=== PATIENT | male | born 1960 | race Caucasian/White ===

== ENCOUNTER 2019-12-15 11:27 | Inpatient (IN) | payer MEDICARE ==
[2019-12-15] MEDS ORDERED: ONDANSETRON HCL INJ 2MG/ML 2ML 2 MG/ML VIAL IV STA (11:38)
[2019-12-15] MEDS ORDERED: LACTATED RINGER'S 1,000 ML INJ ONE ×2 (11:45→14:30)
--- OUTSIDE RECORDS SUMMARY | 2019-12-15 11:56 | XMS REPORT | Clinical Summary ---
Author Author [facility] Organization [facility] Address Unknown Phone Unavailable Care Team Providers Care Executive Producer Promos Name Role Phone Dixon--Jefferson Santos PCP Allergies No Known Allergies Medications End Date Status Medication Sig Dispensed Refills Start Date Active insulin detemir (LEVEMIR) Inject 10 0 100 unit/mL injection Units subcutaneousl y 2 (two) times daily . Active lisinopril Take 20 mg by 0 (PRINIVIL,ZESTRIL) 20 MG mouth 2 (two) tablet times daily. Active furosemide (LASIX) 20 MG Take 20 mg by 0 tablet mouth daily. Active allopurinol (ZYLOPRIM) Take 300 mg 0 100 MG tablet by mouth daily . Active lovastatin (MEVACOR) 40 Take 40 mg by 0 MG tablet mouth nightly. Active omeprazole (PRILOSEC) 40 Take 40 mg by 0 MG capsule mouth daily. Active cloNIDine HCl (CATAPRES) Take 0.1 mg 0 0.1 MG tablet by mouth 3 (three) times daily. Active Problems Not on file Social History Date Tobacco Use Types Packs/Day Years Used Never Smoker Smokeless Tobacco: Never Used Alcohol Use Drinks/Week oz/Week Comments No Sex Assigned at Date Recorded Not on file Industry Job Start Date Occupation Not on file Not on file Not on file Travel End Travel History Travel Start No recent travel history available. Last Filed Vital Signs Not on file Plan of Treatment Not on file Results Not on fileafter 12/14/2018 Insurance Payer Benefit Subscriber ID Type Phone Address Plan / Group MEDICARE MEDICARE A xxxxxxxxxxx Medicare B [id number]
--- OUTSIDE RECORDS SUMMARY | 2019-12-15 11:56 | XMS REPORT | Continuity of Care Document ---
Author Author [facility] t Organization [facility] Address [address] [place] [address] Phone Unavailable Care Team Providers Care Senior Hris Analyst Name Role Phone Dixon--Eddie Santos PCP Penny SWANSON SUNEAL Attphys Unavailable MANSMARY GRACE, BERGER LEOBARDO Attphys Unavailable HAUSERANUSHKA DEY Attphys Unavaila ble Penny SWANSON SUNEAL Admphys Unavailable MANSOUR, BERGER LEOBARDO Admphys Unavailable HAUSER SMARTANUSHKA DUPONT MIGUELINA Admphys Unavaila ble Problems This patient has no known problems. Allergies, Adverse Reactions, Alerts This patient has no known allergies or adverse reactions. Social History Social Habit Start Date Stop Date Quantity Comments Source Sex Assigned At [facility] Smoking Status Start Date Stop Date Source Never smoker [facility] Medications Ordered Medication Name Filled Medication Name Start Date Stop Da te Current Medication? Ordering Clinician Indication Dosage Frequency Signature (SIG) Comments Components Source insulin detemir (LEVEMIR) 100 unit/mL injection 2018-09-19 11:09 :53 Yes 10U Q.5D Inject 10 Units subcutaneously 2 (two) times daily . [facility] allopurinol (ZYLOPRIM) 100 MG tablet 2017-04-29 12:41:09 Ye s 300mg QD Take 300 mg by mouth daily . [facility] lovastatin (MEVACOR) 40 MG tablet 2017-04-29 12:41:09 Yes 40mg QD Take 40 mg by mouth nightly. [facility] omeprazole (PRILOSEC) 40 MG capsule 2017-04-29 12:41:09 Yes 40mg QD Take 40 mg by mouth daily. [facility] cloNIDine HCl (CATAPRES) 0.1 MG tablet 2017-04-29 12:41:09 Yes .1mg Q.[id number] Take 0.1 mg by mouth 3 (three) times daily. [facility] lisinopril (PRINIVIL,ZESTRIL) 20 MG tablet 2014-06-18 10:22:56 Yes 20mg Q.5D Take 20 mg by mouth 2 (two) times daily. [facility] furosemide (LASIX) 20 MG tablet 2014-06-18 10:22:56 Yes 20mg QD Take 20 mg by mouth daily. [facility] Procedures This patient has no known procedures. Results Test Description Test Time Test Comments Results Result Comments Source POCT-GLUCOSE METER 2018-09-21 06:56:00 Test Item POC-GLUCOSE METER (BEAKER) (test code = 1538) 206 mg/dL 70-110 H TESTED AT [address] [address] POCT-GLUCOSE [id number] 13:43:00* Test Item Value Reference Range Interpretation Comments POC-GLUCOSE METER (BEAKER) (test code = 1538) 111 mg/dL 70-110 H TESTED AT [address] [address] TISSUE [id number] 09:51:00Surgical Pathology Report Case: [id number] Authorizing Provider: Miguelina Rogers Collected: 06/10/2017 08Sae Starkey MD Ordering Location: 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 Signing Pathologist Direct Phone Line: [phone] signed by Surinder Velasquez MD on 06/13/2017 at 9:51 [id number], [id number] cancer screening, achalasiaGastric biopsy The specimen is received in a formalin-filled container labeled with the patient's information and labeled "gastric biopsy" and consists of two fragments of su tissue both measuring 0.1 cm, submitted in A1. CG/ew The following special studies were performed on this case and the interpretation is incorporated in the diagnostic report above:BLOCK A1- WARTHIN STARRYPOCT-GLUCOSE [id number] 09:58:00* Test Item Value Reference Range Interpretation Comments POC-GLUCOSE METER (BEAKER) (test code = 1538) 242 mg/dL 70-110 H TESTED AT [address] [address] POCT-GLUCOSE [id number] 08:31:00* Test Item Value Reference Range Interpretation Comments POC-GLUCOSE METER (BEAKER) (test code = 1538) 207 mg/dL 70-110 H TESTED AT [address] [address] TISSUE [id number] 15:07:00Surgical Pathology Report Case: [id number] Authorizing Provider: Miguelina Watt Collected: 10/15/2016 Carlos Starkey MD Ordering Location: [facility] Endoscopy Received: 10/15/2016 1603 Services Pathologist: Maciej Daly MD Specimen: Antrum STOMACH ANTRUM, BIOPSY- CHRONIC INACTIVE GASTRITIS, MILD- NO INTESTINAL METAPLASIA, NO DYSPLASIA AND NO MALIGNANCY IDENTIFIED- NO HELICOBACTER PYLORI ORGANISMS IDENTIFIED ON WARTHIN-STARRY STAIN [address]62[address], [id number], unspecified type, Down syndromeAntrum biopsyThe specimen is received in a formalin-filled container and labeled with the patient's information and labeled "antrum biopsy" and consists of two fragments of su-pink soft tissue measuring 0.1 and 0.3 cm, submitted entirely A1. CG/pl Sections reveal fragments of benign antral mucosa with mild chronic inflammation and focal vascular congestion. No active gastritis is seen. No Helicobacter pylori organisms are identified on Warthin - Starry stain. Intestinal metaplasia, dysplasia and malignancy are not seen.The following special studies were performed on this case and the interpretation is incorporated in the diagnostic report above:IMMUNOHISTOCHEMISTRY/SPECIAL STAIN SUMMARY:The results of immunohistochemical studies and/or special stains are as follows:A. Warthin-Starry stain - No Helicobacter pylori organisms identified POCT-GLUCOSE [id number] 15:40:00* Test Item Value Reference Range Interpretation Comments POC-GLUCOSE METER (BEAKER) (test code = 1538) 152 mg/dL 70-110 H TESTED AT [place] [address] POCT-GLUCOSE [id number] 12:41:00* Test Item Value Reference Range Interpretation Comments POC-GLUCOSE METER (BEAKER) (test code = 1538) 118 mg/dL 70-110 H TESTED AT [place] [address]
[2019-12-15 11:58] LABS: BASOPHILS # (AUTO) 0.1 (0.0-0.1); BASOPHILS % 1.8 % (0.0-1.0); EOSINOPHILS # (AUTO) 0.1 (0.0-0.4); EOSINOPHILS % 0.7 % (0.0-6.0); HEMOGLOBIN 14.3 g/dL (14.0-18.0); LYMPHOCYTES # (AUTO) 3.8 (1.0-3.2); LYMPHOCYTES % 52.3 % (18.0-39.1); MEAN CORPUSCULAR HEMOGLOBIN 26.9 pg (28-32); MEAN CORPUSCULAR HGB CONC 33.3 g/dL (31-35); MEAN CORPUSCULAR VOLUME 80.8 fL (81-99); MONOCYTES # (AUTO) 0.8 (0.2-0.8); MONOCYTES % 11.5 % (4.4-11.3); NEUTROPHILS # (AUTO) 2.4 (2.1-6.9); NEUTROPHILS % 33.3 % (38.7-80.0); PLATELET COUNT 272 x10e3/uL (140-360); RED BLOOD COUNT 5.32 x10e6/uL (4.3-5.7); RED CELL DISTRIBUTION WIDTH 14.6 % (11.7-14.4)
--- NOTE | 2019-12-15 12:04 | Emergency Department Note ---
History of Present Illnes History of Present Illness Chief Complaint: General Medicine Complaints History of Present Illness This is a 59 year old male w BEN Walker here for decrease po intake over last month, worse pner last 1-2 days. Not drinking anything all day, minimal. Historian: Family Member Arrival Mode: Car Onset (how long ago): day(s) (2) Location: diffuse Radiation: Reports non-radiation Severity: severe Onset quality: gradual Duration (how long): day(s) (2) Timing of current episode: constant Progression: worsening Relieving factors: none Exacerbating factors: none Past Medical/Family History Physician Review I have reviewed the patient's past medical and family history. Any updates have been documented here. Past Medical History Recent Fever: No Clinical Suspicion of Infectio: No New/Unexplained Change in Ment: No Past Medical History: Diabetes Other Medical History: DOWNS SYNDROME Other Surgery: ESOPHAGEAL STRICTURES SURGERY Review of Systems ROS Narrative Unable to obtain ROS: other (DeniseBEN) Physical Exam Related Data Allergies: Coded Allergies: No Known Allergies (Unverified , 12/15/19) Triage Vital Signs Vital Signs Date Time Temp Pulse Resp B/P (MAP) Pulse Ox O2 Delivery O2 Flow Rate FiO2 12/15/19 11:28 98.0 100 20 131/64 100 Room Air Physical Exam CONSTITUTIONAL Constitutional: Present well-developed, Present well-nourished HENT HENT: Present normocephalic, Present atraumatic, Present oropharynx clear/moist, Present nose normal HENT L/R: Present left ext ear normal, Present right ext ear normal EYES Eyes: Reports PERRL, Reports conjunctivae normal NECK Neck: Present ROM normal PULMONARY Pulmonary: Present effort normal, Present breath sounds normal CARDIOVASCULAR Cardiovascular: Present regular rhythm, Present heart sounds normal, Present capillary refill normal, Present tachycardia GASTROINTESTINAL Abdominal: Present soft, Present nontender, Present bowel sounds normal GENITOURINARY Genitourinary: Present exam deferred SKIN Skin: Present warm, Present dry MUSCULOSKELETAL Musculoskeletal: Present ROM normal NEUROLOGICAL Neurological: Present alert, Present oriented x 3, Present no gross motor or sensory deficits PSYCHOLOGICAL Psychological: Present mood/affect normal, Present judgement normal Results Laboratory Laboratory Laboratory Tests Test 12/15/19 11:48 Assessment & Plan Medical Decision Making MDM Pt is a 59 y/o with Denise now with decrease po intake, h/o stricture and GI procedure by Dr Verdugo ?dilation. We will try to po challenge, if unable will admit for scope. Reassessment Reassessment Patient will be admitted for acute renal failure, Dr. Brown accepted. Assessment & Plan Final Impression: (1) Acute kidney failure (2) Dehydration Depart Disposition: ADMITTED Last Vital Signs Date Time Temp Pulse Resp B/P (MAP) Pulse Ox O2 Delivery O2 Flow Rate FiO2 12/15/19 11:28 98.0 100 20 131/64 100 Room Air Medications in the ED Ondansetron HCl 4 mg NOW STAT IV ; Start 12/15/19 at 11:38; Stop 12/15/19 at 11:48; Status DC Lactated Ringer's 1,000 ml @ 0 mls/hr Q0M ONCE INJ ; Start 12/15/19 at 11:45; Stop 12/15/19 at 11:46; Status DC KRISTIE GIBSON MD Dec 15, 2019 12:04
[2019-12-15 12:17] LABS: ANION GAP 25.7 mmol/L (8-16); CALCIUM 9.3 mg/dL (8.4-10.2); CREATININE, SERUM 3.32 mg/dL (0.72-1.25); POTASSIUM 4.7 mmol/L (3.5-5.1)
[2019-12-15] MEDS ORDERED: DONNATAL/LIDOCAINE/MAALOX 30 ML SUSP PO ONE (13:00)
[2019-12-15] MEDS ORDERED: LEVETIRACETAM IV ONE (13:30)
[2019-12-15] MEDS ORDERED: SODIUM CHLORIDE 0.9% IV ONE (13:30)
--- NOTE | 2019-12-15 13:30 | NUR ---
RAPID RESPONSE CALLED FOR PATIENT IN CT AT THIS TIME; PER GRIEVANCE COORDINATOR, PATIENT EXHIBITING SEIZURE-LIKE ACTIVITY. UPON ARRIVAL PATIENT RESPONSIVE TO VOICE, BACK TO BASELINE. PATIENT SEEN TENSING UP AND JERKING RIGHT ARM, NO POST ICTAL PERIOD NOTED, PATIENT EASILY REDIRECTED BY TALKING TO HIM. PATIENT ABLE TO GET CT DONE WITH RN PRESENT TO REASSURE HIM. PER SISTER, PATIENT DOES THAT WHEN HE WANTS ATTENTION. PATIENT WITH NO HISTORY OF SEIZURES
--- NOTE | 2019-12-15 13:58 | Diagnostic Imaging Report ---
EXAMINATION: Head CT HISTORY: Seizure COMPARISON: None. TECHNIQUE: Helical axial images of the head were obtained. Reformatted coronal and sagittal images from the axial data. Dose modulation, iterative reconstruction, and/or weight based adjustment of the mA/kV was utilized to reduce the radiation dose to as low as reasonably achievable. Image quality: Motion/streaking artifact limits the evaluation of the skull base and posterior cranial fossa. FINDINGS: Parenchyma: 1. No abnormal densities. 2. No mass or hemorrhage. No CT evidence of acute territorial vascular insult. Extra-axial spaces:No abnormal density. No extra-axial fluid collections Brain volume: Normal for age. Ventricles: No hydrocephalus or displacement. Arteries: No density suggestive of thrombus. Dural sinuses: No abnormal density. Foramen magnum: No mass, Chiari malformation, or basilar invagination. Sella: No obvious mass. Paranasal/mastoid sinuses: Imaged portions unremarkable. Skull/Scalp: No lytic or blastic lesions. No fractures. IMPRESSION: No intracranial abnormalities. Signed by: Dr. Nery Carballo M.D. on 12/15/2019 1:54 PM
[2019-12-15] MEDS ORDERED: LORAZEPAM INJ 2 MG/ML VIAL IV ONE (14:00)
--- NOTE | 2019-12-15 14:01 | Diagnostic Imaging Report ---
EXAM: CT Abdomen and Pelvis WITHOUT contrast INDICATION: Abdominal pain. COMPARISON: None. TECHNIQUE: Abdomen and pelvis were scanned utilizing a multidetector helical scanner from the lung base to the pubic symphysis without administration of IV contrast. Absence of intravenous contrast decreases sensitivity for detection of focal lesions and vascular pathology. Coronal and sagittal reformations were obtained. Routine protocol was performed. IV CONTRAST: None ORAL CONTRAST: None COMPLICATIONS: None RADIATION DOSE: Total DLP: 1679.72 mGy*cm Estimated effective dose: (DLP x 0.015 x size factor) mSv CTDIvol has been reviewed. It is below the limits set by the Radiation Protocol Committee (RPC). Dose modulation, iterative reconstruction, and/or weight based adjustment of the mA/kV was utilized to reduce the radiation dose to as low as reasonably achievable. FINDINGS: LINES and TUBES: None. LOWER THORAX: Unremarkable HEPATOBILIARY: The liver is diffuse hypodense compared to the spleen, consistent with diffuse hepatic diffuse hepatic steatosis. No focal hepatic lesions. No biliary ductal dilation. GALLBLADDER: No radio-opaque stones or sludge. No wall thickening. SPLEEN: No splenomegaly. PANCREAS: There is fatty infiltration of the pancreas. ADRENALS: No adrenal nodules KIDNEYS/URETERS: No hydronephrosis. No cystic or solid mass lesions. No stones. GI TRACT: Small hiatal hernia. No abnormal distention, wall thickening, or evidence of bowel obstruction. Appendix is normal. PELVIC ORGANS/BLADDER: Unremarkable. LYMPH NODES: No lymphadenopathy. VESSELS: Punctate calcification in the inferior vena cava (series 6 image 14) likely represents a phlebolith. The abdominal aorta and its major abdomen and pelvic branches have normal caliber with mild atherosclerotic calcification. PERITONEUM / RETROPERITONEUM: No free air or fluid. BONES: There are degenerative changes in the spine. There is a healing fracture of the left inferior pubic rami (series 6 image 86) SOFT TISSUES: There are fat containing inguinal hernias. IMPRESSION: 1. No acute abdominopelvic abnormality identified. 2. Hepatic steatosis. Signed by: Francisco Calderon MD on 12/15/2019 1:57 PM
--- OUTSIDE RECORDS SUMMARY | 2019-12-15 14:59 | XMS REPORT | Clinical Summary ---
Author Author [facility] Organization [facility] Address Unknown Phone Unavailable Care Team Providers Care Sprinkler Irrigation Equipment Mechanic Name Role Phone Dixon--Jefferson Santos PCP Allergies [...] Group MEDICARE MEDICARE A xxxxxxxxxxx Medicare B [id number]
--- OUTSIDE RECORDS SUMMARY | 2019-12-15 14:59 | XMS REPORT | Continuity of Care Document ---
Author Author [facility] t Organization [facility] Address [address] [place] [address] Phone Unavailable Care Team Providers Care Transitional Studies Instructor Name Role Phone Dixon--Eddie Santos PCP Nora GIBSON Attphys Unavailable Penny SWANSON SUNEAL Attphys Unavailable CELINE BLACKBURN LEOBARDO Attphys Unavailable LALITO NIEVES Attphys Unavaila ble Penny SWANSON SUNEAL Admphys Unavailable MANSCELINE BRODY LEOBARDO Admphys Unavailable HAUSER LALITO SMART Admphys Unavaila ble Problems This patient has no known problems. Allergies, Adverse Reactions, Alerts This patient has no known allergies or adverse reactions. Social History Social Habit Start Date Stop Date Quantity Comments Source Sex Assigned At [facility] Smoking Status Start Date Stop Date Source Never smoker [facility] Medications Ordered Medication Name Filled Medication Name Start Date Stop Da te Current Medication? Ordering Clinician Indication Dosage Frequency Signature (SIG) Comments Components Source insulin detemir (LEVEMIR) 100 unit/mL injection 2018-09-19 11:09 :53 Yes 10U Q.5D Inject 10 Units subcutaneously 2 (two) times daily . [facility] allopurinol (ZYLOPRIM) 100 MG tablet 2017-04-29 12:41:09 Ye s 300mg QD Take 300 mg by mouth daily . [facility] lovastatin (MEVACOR) 40 MG tablet 2017-04-29 12:41:09 Yes 40mg QD Take 40 mg by mouth nightly. [facility] omeprazole (PRILOSEC) 40 MG capsule 2017-04-29 12:41:09 Yes 40mg QD Take 40 mg by mouth daily. [facility] cloNIDine HCl (CATAPRES) 0.1 MG tablet 2017-04-29 12:41:09 Yes .1mg Q.[id number] Take 0.1 mg by mouth 3 (three) times daily. [facility] lisinopril (PRINIVIL,ZESTRIL) 20 MG tablet 2014-06-18 10:22:56 Yes 20mg Q.5D Take 20 mg by mouth 2 (two) times daily. [facility] furosemide (LASIX) 20 MG tablet 2014-06-18 10:22:56 Yes 20mg QD Take 20 mg by mouth daily. [facility] Procedures This patient has no known procedures. Results Test Description Test Time Test Comments Results Result Comments Source CT BRAIN WO 2019-12-15 13:52:00 [place] [address] Patient Name: TRICIA TIRADO MR #: [id number] : 1960 Age/Sex: 59/M Req #: [id number] Adm Physician: Ordered by: KRISTIE GIBSON MD Report #: [id number] Location: ER Room/Bed: Procedure: [id number] CT/CT BRAIN WO Exam Date: 12/15/19 Exam Time: 1330 REPORT STATUS: Signed EXAMINATION: Head CT HISTORY: Seizure COMPARISON: None. TECHNIQUE: Helical axial images of the head were obtained. Reformatted coronal and sagittal images from the axial data. Dose modulation, iterative reconstruction, and/or weight based adjustment of the mA/kV was utilized to reduce the radiation dose to as low as reasonably achievable. Image quality: Motion/streaking artifact limits the evaluation of the skull base and posterior cranial fossa. FINDINGS: Parenchyma: 1. No abnormal densities. 2. No mass or hemorrhage. No CT evidence of acute territorial vascular insult. Extra-axial spaces:No abnormal den sity. No extra-axial fluid collections Brain volume: Normal for age. Ventricles: No hydrocephalus or displacement. Arteries: No density suggestive of thrombus. Dural sinuses: No abnormal density. Foramen magnum: No mass, Chiari malformation, or basilar invagination. Sella: No obvious mass. Paranasal/mastoid sinuses: Imaged portions unremarkable. Skull/Scalp: No lytic or blastic lesions. No fractures. IMPRESSION: No intracranial abnormalities. Signed by: Dr. Isabel Carballo M.D. on 12/15/2019 1:54 PM Dictated By: ISABEL CARBALLO MD [id number] Transcribed By: DANIELLA on 12/15/19 1354 COPY TO: KRISTIE GIBSON MD CT ABDOMEN/PELVIS WO 2019-12-15 13:49:00 [place] [address] Patient Name: TRICIA TIRADO MR #: [id number] : 1960 Age/Sex: 59/M Req #: [id number] Adm Physician: Ordered by: KRISTIE GIBSON MD Report #: [id number] Location: ER Room/Bed: Procedure: [id number] CT/CT ABDOMEN/PELVIS WO Exam Date: 12/15/19 Exam Time: 1325 REPORT STATUS: Signed EXAM: CT Abdomen and Pelvis WITHOUT contrast INDICATION: Abdominal pain. COMPARISON: None. TECHNIQUE: Abdomen and pelvis were scanned utilizing a multidetector helical scanner from the lung base to the pubic symphysis without administration of IV contrast. Absence of intravenous contrast decreases sensitivity for detection of focal lesions and vascular pathology. Coronal and sagittal reformations were obtained. Routine protocol was performed. IV CONTRAST: None ORAL CONTRAST: None COMPLICATIONS: None RADIATION DOSE: Total DLP: 1679.72 mGy*cm Estimated effective dose: (DLP x 0.015 x size factor) mSv CTDIvol has been reviewed. It is below the limits set by the Radiation Protocol Committee (RPC). Dose modulation, iterative reconstruction, and/or weight based adjustment of the mA/kV was utilized to reduce the radiation dose to as low as reasonably achievable. FINDINGS: LINES and TUBES: None. LOWER THORAX: Unremarkable HEPATOBILIARY: The liver is diffuse hypodense compared to the spleen, consistent with diffuse hepatic diffuse hepatic steatosis. No focal hepatic lesions. No biliary ductal dilation. GALLBLADDER: No radio-opaque stones or sludge. No wall thickening. SPLEEN: No splenomegaly. PANCREAS: There is fatty infiltration of the pancreas. ADRENALS: No adrenal nodules KIDNEYS/URETERS: No hydronephrosis. No cystic or solid mass lesions. No stones. GI TRACT: Small hiatal hernia. No abnormal distention, wall thickening, or evidence of bowel obstruction. Appendix is normal. PELVIC ORGANS/BLADDER: Unremarkable. LYMPH NODES: No lymphadenopathy. VESSELS: Punctate calcification in the inferior vena cava (series 6 image 14) likely represents a phlebolith. The abdominal aorta and its major abdomen and pelvic branches have normal caliber with mild atherosclerotic calcification. PERITONEUM / RETROPERITONEUM: No free air or fluid. BONES: There are degenerative changes in the spine. There is a healing fracture of the left inferior pubic rami (series 6 image 86) SOFT TISSUES: There are fat containing inguinal hernias. IMPRESSION: 1. No acute a bdominopelvic abnormality identified. 2. Hepatic steatosis. Signed by: Rosaura Lou MD on 12/15/2019 1:57 PM Dictated By: ROSAURA LOU MD [id number] Transcribed By: DANIELLA on 12/15/19 1722 COPY TO: KRISTIE GIBSON MD POCT-GLUCOSE METER 2018-09-21 06:56:00 Test Item POC-GLUCOSE METER (BEAKER) (test code = 1538) 206 mg/dL 70-[address] 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 Signing Pathologist Direct Phone Line: [phone] signed by Surinder Velasquez MD on 06/13/2017 at 9:51 [id number], [id number] cancer screening, achalasiaGastric biopsy The specimen is received in a formalin-filled container labeled with the patient's information and labeled "gastric biopsy" and consists of two fragments of su tissue both measuring 0.1 cm, submitted in A1. CG/ew The following special studies were performed on this case and the interpretation is incorporated in the diagnostic report above:BLOCK A1- WARTHICheng STARRYCOLINCT-GLUCOSE [id number] 09:58:00* Test Item Value Reference Range Interpretation Comments POC-GLUCOSE METER (BEAKER) (test code = 1538) 242 mg/dL 70-[address] [facility] [address] [facility] [address] POCT-GLUCOSE [id number] 08:31:00* Test Item Value Reference Range Interpretation Comments POC-GLUCOSE METER (BEAKER) (test code = 1538) 207 mg/dL 70-[address] [facility] [address] [facility] [address] TISSUE [id number] 15:07:00Surgical Pathology Report Case: [id number] Authorizing Provider: Miguelina Watt Collected: 10/15/2016 1443 MD Lalito Ordering Location: [facility] Endoscopy Received: 10/15/2016 1603 Services Pathologist: Maciej Daly MD Specimen: Antrum STOMACH ANTRUM, BIOPSY- CHRONIC INACTIVE GASTRITIS, MILD- NO INTESTINAL METAPLASIA, NO DYSPLASIA AND NO MALIGNANCY IDENTIFIED- NO HELICOBACTER PYLORI ORGANISMS IDENTIFIED ON WARTHIN-STARRY STAIN [address], [id number], unspecified type, Down syndromeAntrum biopsyThe specimen is [...] - No Helicobacter pylori organisms identified POCT-GLUCOSE [id number] 15:40:00* Test Item Value Reference Range Interpretation Comments POC-GLUCOSE METER (BEAKER) (test code = 1538) 152 mg/dL 70-110 H TESTED AT [place] [id number] [facility] [address] POCT-GLUCOSE [id number] 12:41:00* Test Item Value Reference Range Interpretation Comments POC-GLUCOSE METER (BEAKER) (test code = 1538) 118 mg/dL 70-[address] [facility] [address] [facility] [address]
[2019-12-15] MEDS ORDERED: AMOX TR-K CLV1 EAC2 (15:44)
[2019-12-15] MEDS ORDERED: LEVEMIR FL100 UNIT/1 (15:44)
[2019-12-15] MEDS ORDERED: NOVOFINE PLUS1 EACH (15:44)
[2019-12-15] MEDS ORDERED: METFORMIN HCL850 MG (15:44)
[2019-12-15 16:00] VITALS: BP 118/55
--- NOTE | 2019-12-15 16:45 | NUR ---
PT RECEIVED FROM ER. PT HAS DOWN SYNDROME AND SISTER AT BEDSIDE . CALL LIGHT WITH IN EASY REACH. BED IS LOW AND LOCKED. SIDE RAILS X2. BED ALARM IS ON. PT DENIES NEEDS AT THIS TIME.
--- NOTE | 2019-12-15 16:49 | NUR ---
SISTER AT BEDSIDE INFORMED SHE NEEDS TO GO HOME. PAGED DR CARTER AND INFORMED THE NEED OF SITTER. PAGED COPYIST AND INFORMED PT NEED SITTER FOR PT SAFETY.
--- NOTE | 2019-12-15 16:58 | NUR ---
PT RECEIVED WITH IV FLUIDS RUNNING 250 ML/HR ONCE . PT DENIES NEEDS AT THIS TIME.
--- NOTE | 2019-12-15 17:00 | NUR ---
PT AND SISTER AT BEDSIDE DOESN'T KNOW THE HOME MEDS PT TAKING. PT SISTER WILL BRING THE MED LIST WHEN SHE COME BACK TONIGHT. PAGED DR. CARTER AND REPORTED THE SAME
[2019-12-15 17:08] VITALS: BP 106/70
--- NOTE | 2019-12-15 17:30 | NUR ---
PT SISTER WENT HOME. PT IS RESTING ON BED. PT DENIES NEEDS AT THIS TIME.
--- NOTE | 2019-12-15 18:00 | NUR ---
WALKING ROUNDS MADE. PT IS RESTING ON BED WITH EYES CLOSED. NO DISTRESS NOTED.PT DENIES NEEDS AT THIS TIME.
--- NOTE | 2019-12-15 18:05 | NUR ---
PAGED [facility] TO GET PT MEDICATION LIST BUT PHARMACY IS CLOSED AT THIS TIME.
[2019-12-15 18:07] VITALS: BP 146/59
--- NOTE | 2019-12-15 18:55 | NUR ---
BEDSIDE SHIFT REPORT GIVEN TO THE DRINK WAITER RN. PT IS RESTING ON BED. PT DENIED FURTHER NEEDS.
[2019-12-15 20:00] VITALS: BP 115/67
--- NOTE | 2019-12-15 20:55 | NUR ---
ZOFRAN IV PRN AND ATIVAN IV PRN ORDER RECEIVED FROM DR. CARTER.
[2019-12-15] MEDS ORDERED: ONDANSETRON HCL INJ 2MG/ML 2ML 2 MG/ML VIAL IV PRN (21:00)
[2019-12-15] MEDS ORDERED: LORAZEPAM INJ 2 MG/ML VIAL IV PRN (21:00)
[2019-12-15 22:09] VITALS: BP 115/67
[2019-12-16] VITALS (7 sets, daily range): BP systolic 107–117; BP diastolic 53–63
[2019-12-16] MEDS ORDERED: LEVEMIR FL100 UNIT/1 SC (00:40)
[2019-12-16] MEDS ORDERED: LASIX20 MG PO (00:40)
[2019-12-16] MEDS ORDERED: AMLODIPINE BESY10 MG PO (00:40)
[2019-12-16] MEDS ORDERED: FAMOTIDINE20 MG PO (00:40)
[2019-12-16] MEDS ORDERED: GLIMEPIRIDE2 MG PO (00:40)
[2019-12-16] MEDS ORDERED: NATEGLINIDE60 MG PO (00:40)
[2019-12-16] MEDS ORDERED: METFORMIN HCL850 MG PO (00:40)
[2019-12-16] MEDS ORDERED: LISINOPRIL10 MG PO (00:42)
[2019-12-16 06:00] LABS: ANION GAP 18.6 mmol/L (8-16); CALCIUM 8.3 mg/dL (8.4-10.2); CREATININE, SERUM 2.76 mg/dL (0.72-1.25); POTASSIUM 4.6 mmol/L (3.5-5.1)
--- NOTE | 2019-12-16 06:44 | NUR ---
NOTIFIED DR. CARTER REGARDING CREATININE READING 2.76. NEW ORDER RECEIVED FOR NORMAL SALINE AT 125mls/hr.
[2019-12-16] MEDS: SODIUM CHLORIDE 0.9% 1000ML 1,000 ML IV SCH ×3 (08:36→23:00)
[2019-12-16] MEDS: AMLODIPINE BESYLATE 10 MG TAB PO SCH (08:36)
[2019-12-16] MEDS: GLIMEPIRIDE 2 MG TAB PO SCH (08:36)
[2019-12-16] MEDS: FAMOTIDINE 20 MG TAB PO SCH (20:53)
[2019-12-17] VITALS (7 sets, daily range): BP systolic 101–133; BP diastolic 47–75
[2019-12-17] MEDS: SODIUM CHLORIDE 0.9% 1000ML 1,000 ML IV SCH ×3 (04:09→23:00)
[2019-12-17 05:59] LABS: BASOPHILS # (AUTO) 0.1 (0.0-0.1); BASOPHILS % 1.5 % (0.0-1.0); EOSINOPHILS # (AUTO) 0.1 (0.0-0.4); EOSINOPHILS % 2.3 % (0.0-6.0); HEMATOCRIT 33.9 % (38.2-49.6); HEMOGLOBIN 10.9 g/dL (14.0-18.0); LYMPHOCYTES # (AUTO) 4.1 (1.0-3.2); LYMPHOCYTES % 66.6 % (18.0-39.1); MEAN CORPUSCULAR HEMOGLOBIN 26.9 pg (28-32); MEAN CORPUSCULAR HGB CONC 32.2 g/dL (31-35); MEAN CORPUSCULAR VOLUME 83.7 fL (81-99); MONOCYTES # (AUTO) 0.6 (0.2-0.8); MONOCYTES % 9.4 % (4.4-11.3); NEUTROPHILS # (AUTO) 1.2 (2.1-6.9); NEUTROPHILS % 19.9 % (38.7-80.0); PLATELET COUNT 180 x10e3/uL (140-360); RED BLOOD COUNT 4.05 x10e6/uL (4.3-5.7); RED CELL DISTRIBUTION WIDTH 14.6 % (11.7-14.4)
[2019-12-17 06:48] LABS: ALBUMIN 2.9 g/dL (3.5-5.0); ALBUMIN/GLOBULIN RATIO 1.1 (0.8-2.0); ANION GAP 10.4 mmol/L (8-16); CALCIUM 7.7 mg/dL (8.4-10.2); CREATININE, SERUM 1.94 mg/dL (0.72-1.25); POTASSIUM 4.4 mmol/L (3.5-5.1)
--- NOTE | 2019-12-17 07:00 | NUR ---
RECEIVED PATIENT RESTING IN BED NO S/S OF DISTRESS. BED LOW, WHEELS LOCKED, SIDE RAILS X2. CALL LIGHT IN REACH WILL CONTINUE TO MONITOR PATIENT.
--- NOTE | 2019-12-17 07:26 | NUR ---
NOTIFIED DR. CARTER OF CREATININE LEVEL 1.94 NO NEW ORDERS AT THIS TIME.
[2019-12-17] MEDS: GLIMEPIRIDE 2 MG TAB PO SCH (08:49)
[2019-12-17] MEDS: AMLODIPINE BESYLATE 10 MG TAB PO SCH (08:50)
[2019-12-17 08:57] LABS: EOSINOPHILS % (MANUAL) 3 % (0-7); LYMPHOCYTES % (MANUAL) 56 % (19-48); MONOCYTES % (MANUAL) 5 % (3.4-9.0); NEUTROPHILS % (MANUAL) 26 % (40-74)
[2019-12-17 08:58] LABS: PLATELET ESTIMATE ADEQUATE; PLATELET MORPHOLOGY COMMENT NORMAL; RBC MORPHOLOGY COMMENT NORMAL
--- NOTE | 2019-12-17 16:31 | NUR ---
Nutrition Screen Note RD Recommendation for Physician: - Continue current diet Plan of Care: RD following, monitoring for tolerance and adequacy Nutrition reason for involvement: RN Consult- diet education Primary Diagnose(s): acute kidney failure PMH: No H&P in [facility] Ht: approx 66 in Wt: 212.6 lbslb BMI: N/A no ht, pt can not recall IBW: approx [address] Assessment: (12/16) 59 YOM admitted for acute kidney failure, seen today per diet education consult. Pt provided with K diet education materials to be given to family/caregiver per pt's current cognitive status- not appropriate for education at this time. Pt reports good appetite and po intake currently and [employer]. Pt can not recall UBW, appears well nourished. Pt with no questions or concerns at time of visit. Chart reviewed. Labs and meds reviewed. Will continue to monitor. Current Diet: 1800 ADA Malnutrition Evaluation (12/17/19) The patient does not meet criteria for a specified degree of malnutrition at this time. Will re-evaluate at follow-up as appropriate. Diet Education Needs Assessment: Diet education indicated. Learner(s): pt Barriers: cognitive Cultural/Language Modifications: none Readiness: N/A Method: handouts Topics: Potassium diet restriction Understanding/Compliance: poor- diet education materials left at bedside for pt family/caregiver Diet tolerance: tolerating po Nutrition Care Level: low Signed: Violet Vasquez RD, LD, [facility]
--- NOTE | 2019-12-17 19:32 | NUR ---
Received pt in bed awake and alert. Pt with no s/sx of acute distress noted, no c/o at this time. Bed in low and locked position with alarm on. IVF infusing with no diff. Personal items and call light within reach. Bedside report completed will cont to mon.
[2019-12-17] MEDS: FAMOTIDINE 20 MG TAB PO SCH (21:00)
[2019-12-18] VITALS (9 sets, daily range): BP systolic 109–153; BP diastolic 56–68
[2019-12-18 06:01] LABS: BASOPHILS # (AUTO) 0.2 (0.0-0.1); BASOPHILS % 1.7 % (0.0-1.0); EOSINOPHILS # (AUTO) 0.3 (0.0-0.4); EOSINOPHILS % 2.4 % (0.0-6.0); HEMATOCRIT 41.2 % (38.2-49.6); HEMOGLOBIN 13.5 g/dL (14.0-18.0); LYMPHOCYTES # (AUTO) 6.9 (1.0-3.2); LYMPHOCYTES % 67.6 % (18.0-39.1); MEAN CORPUSCULAR HEMOGLOBIN 27.4 pg (28-32); MEAN CORPUSCULAR HGB CONC 32.8 g/dL (31-35); MEAN CORPUSCULAR VOLUME 83.7 fL (81-99); MONOCYTES # (AUTO) 0.7 (0.2-0.8); NEUTROPHILS # (AUTO) 2.1 (2.1-6.9); NEUTROPHILS % 20.9 % (38.7-80.0); PLATELET COUNT 227 x10e3/uL (140-360); RED BLOOD COUNT 4.92 x10e6/uL (4.3-5.7); RED CELL DISTRIBUTION WIDTH 14.5 % (11.7-14.4)
[2019-12-18 06:26] LABS: ALBUMIN 3.8 g/dL (3.5-5.0); ANION GAP 13.1 mmol/L (8-16); CALCIUM 8.4 mg/dL (8.4-10.2); CREATININE, SERUM 1.58 mg/dL (0.72-1.25); POTASSIUM 4.1 mmol/L (3.5-5.1)
[2019-12-18 06:27] LABS: ALBUMIN/GLOBULIN RATIO 1.1 (0.8-2.0)
--- NOTE | 2019-12-18 07:00 | NUR ---
RECEIVED PATIENT RESTING IN BED NO S/S OF DISTRESS. BED LOW, WHEELS LOCKED, SIDE RAILS X2. CALL LIGHT IN REACH WILL CONTINUE TO MONITOR PATIENT.
[2019-12-18] MEDS: GLIMEPIRIDE 2 MG TAB PO SCH (09:03)
[2019-12-18] MEDS: AMLODIPINE BESYLATE 10 MG TAB PO SCH (09:03)
[2019-12-18] MEDS: SODIUM CHLORIDE 0.9% 1000ML 1,000 ML IV SCH ×2 (11:06→15:00)
[2019-12-18] MEDS ORDERED: DEXTROSE 50% SYRINGE 50 ML IV PRN (11:15)
[2019-12-18] MEDS: INSULIN LISPRO 100 UNIT/1 ML 3ML VIAL SQ SCH ×3 (11:30→21:02)
[2019-12-18] MEDS: FAMOTIDINE 20 MG TAB PO SCH (21:02)
--- NOTE | 2019-12-18 21:09 | NUR ---
Received pt in bed awake, a/o x2-3 IVF infusing with occasional positional interruptions noted. Board placed to assist pt with keeping arm straight. No c/o at this time, no s/sx of acute distress notes. Bed in low and locked position, call light and personal items within reach. Will cont to mon.
[2019-12-19] VITALS: BP 109/50
[2019-12-19 04:00] VITALS: BP 117/55
[2019-12-19] MEDS ORDERED: MAGNESIUM SULFATE 2GM/50ML 50 ML IV ONE (04:45)
[2019-12-19 05:52] LABS: ALBUMIN 3.1 g/dL (3.5-5.0); ALBUMIN/GLOBULIN RATIO 1.1 (0.8-2.0); ANION GAP 12.2 mmol/L (8-16); CALCIUM 7.8 mg/dL (8.4-10.2); CREATININE, SERUM 1.36 mg/dL (0.72-1.25); POTASSIUM 4.2 mmol/L (3.5-5.1)
--- NOTE | 2019-12-19 07:00 | NUR ---
bedside shift report received pt in stable condition, no distress noted, updated on poc voiced understanding, denies pain at this time, call light in reach will continue to monitor
[2019-12-19] MEDS: INSULIN LISPRO 100 UNIT/1 ML 3ML VIAL SQ SCH (07:30)
[2019-12-19 07:33] VITALS: BP 125/65
[2019-12-19 08:42] VITALS: BP 125/65
[2019-12-19] MEDS: GLIMEPIRIDE 2 MG TAB PO SCH (08:45)
[2019-12-19] MEDS: AMLODIPINE BESYLATE 10 MG TAB PO SCH (08:45)
[2019-12-19] MEDS ORDERED: ONDANSETRON HCL 4 MG ORAL DISINTEGRATING TAB PO PRN (10:15)
--- NOTE | 2019-12-22 08:53 | Discharge Summary ---
DISCHARGE DIAGNOSES: 1. Dehydration. 2. Acute kidney injury. 3. Diabetes. 4. Hypertension. 5. Down syndrome. HISTORY OF PRESENT ILLNESS AND HOSPITAL COURSE: See hospital chart for full details. The patient is a gentleman with history of Down syndrome, who has previously had a decreased p.o. intake where he was noticed to come in with some severe acute kidney injury secondary to dehydration. He was brought in and placed on IV fluids. Monitor of his sugars of blood pressure, which he did very well. At each day, his creatinine improved. At the time of discharge, he is almost near normal, less confused, eating and drinking well on his own. He is able to be discharged home with his family to follow up with his PCP in 1 to 2 weeks. Please see hospital chart for full details. MD HELENA Alvarado/TINA /[id number]
== END 2019-12-19 10:49 | disposition home or self-care (01) | DRG 641 ==
LOC: ER 11:54 → ERHOLD 14:42 → MED/SURG 16:49
PROVIDERS: ADMIT Internal Medicine; ATTEND Internal Medicine
DX: E86.0 Dehydration (principal); N17.9 Acute kidney failure, unspecified; K21.9 Gastro-esophageal reflux disease without esophagitis; E11.9 Type 2 diabetes mellitus without complications; I10 Essential (primary) hypertension; Q90.9 Down syndrome, unspecified; Z82.49 Family history of ischemic heart disease and other diseases of the circulatory system; F41.9 Anxiety disorder, unspecified; D64.9 Anemia, unspecified; Z11.59 Encounter for screening for other viral diseases; Z79.4 Long term (current) use of insulin
CPT/HCPCS: 36415; 70450; 74176; 80048; 80053; 83518; 83735; 84484; 85025; 87070; 96361; 96372; 99284; J2060; J2405; J3475; J7030; J7121; U0002

== ENCOUNTER 2023-01-16 08:01 | Emergency (ER) | payer MEDICARE ==
[~2023-01-16] VITALS: Ht 149.9 cm; Wt 96.2 kg
[~2023-01-16 08:01] MED LIST: AMLODIPINE BESY10 MG PO; AMOX TR-K CLV1 EAC2; FAMOTIDINE20 MG PO; GLIMEPIRIDE2 MG PO; LASIX20 MG PO; LEVEMIR FL100 UNIT/1; LEVEMIR FL100 UNIT/1 SC; LISINOPRIL10 MG PO; METFORMIN HCL850 MG; METFORMIN HCL850 MG PO; NATEGLINIDE60 MG PO; NOVOFINE PLUS1 EACH
[2023-01-16] MEDS ORDERED: DEXTROSE 5%/0.45% SOD CHL 1,000 ML IV ONE (08:30)
[2023-01-16] MEDS ORDERED: LACTATED RINGER'S 1,000 ML INJ SCH (08:30)
[2023-01-16 09:31] LABS: BASOPHILS # (AUTO) 0.1 (0.0-0.1); BASOPHILS % 0.8 % (0.0-1.0); EOSINOPHILS # (AUTO) 0.1 (0.0-0.4); EOSINOPHILS % 1.1 % (0.0-6.0); HEMATOCRIT 30.5 % (38.2-49.6); HEMOGLOBIN 10.7 g/dL (14.0-18.0); LYMPHOCYTES # (AUTO) 1.4 (1.0-3.2); LYMPHOCYTES % 22.4 % (18.0-39.1); MEAN CORPUSCULAR HEMOGLOBIN 27.8 pg (28-32); MEAN CORPUSCULAR HGB CONC 35.1 g/dL (31-35); MEAN CORPUSCULAR VOLUME 79.2 fL (81-99); MONOCYTES # (AUTO) 0.6 (0.2-0.8); MONOCYTES % 9.1 % (4.4-11.3); NEUTROPHILS # (AUTO) 4.1 (2.1-6.9); NEUTROPHILS % 66.4 % (38.7-80.0); PLATELET COUNT 227 x10e3/uL (140-360); RED BLOOD COUNT 3.85 x10e6/uL (4.3-5.7); RED CELL DISTRIBUTION WIDTH 15.7 % (11.7-14.4); WHITE BLOOD COUNT 6.16 x10e3/uL (4.8-10.8)
[2023-01-16 09:45] LABS: ANION GAP 14.3 mmol/L (8-16); BLOOD UREA NITROGEN 32 mg/dL (7-26); BUN/CREATININE RATIO 20 (6-25); CALCIUM 8.8 mg/dL (8.4-10.2); CARBON DIOXIDE 25 mmol/L (22-29); CHLORIDE 107 mmol/L (98-107); CREATININE, SERUM 1.62 mg/dL (0.72-1.25); GLUCOSE 142 mg/dL (74-118); POTASSIUM 4.3 mmol/L (3.5-5.1); SODIUM 142 mmol/L (136-145)
[2023-01-16 10:09] LABS: CLARITY,URINE SL CLOUDY (CLEAR); COLOR,URINE YELLOW (YELLOW); LEUKOCYTE ESTERASE ,URINE TRACE (NEGATIVE)
[2023-01-16 10:10] LABS: KETONES,URINE NEGATIVE (NEGATIVE); NITRITE,URINE NEGATIVE (NEGATIVE); PROTEIN,URINE DIPSTICK NEGATIVE (NEGATIVE); URINE UROBILINOGEN 0.2 mg/dL (0.2 - 1)
[2023-01-16 10:22] LABS: BACTERIA,URINE MANY /HPF; RBC,URINE 0-5 /HPF (0-5)
[2023-01-16 10:23] LABS: EPITHELIAL CELLS,URINE MODERATE /LPF
[2023-01-16] MEDS ORDERED: CEFDINIR300 MG PO (10:57)
[2023-01-16 10:59] VITALS: O2SAT 100
[2023-01-17] MEDS ORDERED: RISPERIDONE1 MG PO (15:41)
[2023-01-17] MEDS ORDERED: DICLOFENAC SODI75 MG PO (15:41)
[2023-01-17] MEDS ORDERED: ATORVASTATIN CA40 MG PO (15:43)
[2023-01-24] MEDS ORDERED: DOXYCYCLINE HY100 MG PO ×2 (08:03→09:21)
[2023-01-24] MEDS ORDERED: ELIQUIS5 MG PO ×2 (08:03→09:21)
== END 2023-01-16 11:49 | disposition home or self-care (01) ==
LOC: ER 08:08
DX: E86.0 Dehydration (principal); N17.9 Acute kidney failure, unspecified; N39.0 Urinary tract infection, site not specified; E11.65 Type 2 diabetes mellitus with hyperglycemia; Q90.9 Down syndrome, unspecified; Z20.822 Contact with and (suspected) exposure to COVID-19; R94.31 Abnormal electrocardiogram [ECG] [EKG]
CPT/HCPCS: 0223U; 36415; 71045; 80048; 81001; 85025; 87086; 87186; 87400; 93005; 99284; J0696; J7121

== ENCOUNTER 2023-01-17 13:56 | Inpatient (IN) | payer MEDICARE ==
[~2023-01-17] VITALS: Ht 121.9 cm; Wt 90.3 kg
[2023-01-17] VITALS (19 sets, daily range): BP systolic 103–125; BP diastolic 50–102; PULSE 10–59; RESP 5–55; TEMP 97.8–98.1; O2SAT 100
[~2023-01-17 13:56] MED LIST changes: +CEFDINIR300 MG PO
[2023-01-17] MEDS ORDERED: SODIUM CHLORIDE 0.9% 1000ML 1,000 ML IV STA ×3 (14:10)
[2023-01-17 14:26] LABS: BASOPHILS # (AUTO) 0.1 (0.0-0.1); BASOPHILS % 1.4 % (0.0-1.0); EOSINOPHILS # (AUTO) 0.1 (0.0-0.4); EOSINOPHILS % 1.2 % (0.0-6.0); HEMOGLOBIN 10.8 g/dL (14.0-18.0); LYMPHOCYTES # (AUTO) 1.7 (1.0-3.2); LYMPHOCYTES % 33.7 % (18.0-39.1); MEAN CORPUSCULAR HEMOGLOBIN 27.7 pg (28-32); MEAN CORPUSCULAR HGB CONC 34.8 g/dL (31-35); MEAN CORPUSCULAR VOLUME 79.5 fL (81-99); MONOCYTES # (AUTO) 0.4 (0.2-0.8); MONOCYTES % 7.5 % (4.4-11.3); NEUTROPHILS # (AUTO) 2.8 (2.1-6.9); NEUTROPHILS % 55.8 % (38.7-80.0); PLATELET COUNT 232 x10e3/uL (140-360); RED CELL DISTRIBUTION WIDTH 15.8 % (11.7-14.4); WHITE BLOOD COUNT 4.95 x10e3/uL (4.8-10.8)
[2023-01-17 14:32] LABS: INR 1.15; PARTIAL THROMBOPLASTIN TIME 25.7 seconds (23.8-35.5); PROTHROMBIN TIME 15.4 seconds (11.9-14.5)
[2023-01-17 14:52] LABS: ACETAMINOPHEN < 3.0 ug/mL (10-30); ETHANOL < 10.0 mg/dL (0.0-10.0); SALICYLATE < 5.0 mg/dL (0-30)
[2023-01-17] MEDS ORDERED: HYDROCORTISONE SOD SUCCINATE 100 MG VIAL IV ONE (15:00)
[2023-01-17 15:09] LABS: TROPONIN I 0.017 ng/mL (0-0.300)
[2023-01-17 15:14] LABS: ALBUMIN 3.1 g/dL (3.5-5.0); ALBUMIN/GLOBULIN RATIO 1.1 (0.8-2.0); ANION GAP 14.3 mmol/L (8-16); BILIRUBIN,TOTAL 0.9 mg/dL (0.2-1.2); CALCIUM 8.5 mg/dL (8.4-10.2); CREATININE, SERUM 1.76 mg/dL (0.72-1.25); MAGNESIUM 1.7 MG/DL (1.3-2.1); POTASSIUM 4.3 mmol/L (3.5-5.1); TOTAL PROTEIN 5.8 g/dL (6.5-8.1)
[2023-01-17] MEDS ORDERED: RISPERIDONE1 MG PO (15:41)
[2023-01-17] MEDS ORDERED: DICLOFENAC SODI75 MG PO (15:41)
[2023-01-17] MEDS ORDERED: ATORVASTATIN CA40 MG PO (15:43)
[2023-01-17 15:47] LABS: AMPHETAMINES SCREEN,URINE NEGATIVE (NEGATIVE); BENZODIAZEPINES SCREEN,URINE NEGATIVE (NEGATIVE); CANNABINOIDS SCREEN,URINE NEGATIVE (NEGATIVE); METHADONE SCREEN, URINE NEGATIVE (NEGATIVE); OPIATES SCREEN,URINE NEGATIVE (NEGATIVE); PHENCYCLIDINE SCREEN,URINE NEGATIVE (NEGATIVE)
[2023-01-17 15:48] LABS: BILIRUBIN,URINE NEGATIVE (NEGATIVE); CLARITY,URINE SL CLOUDY (CLEAR); COLOR,URINE STRAW (YELLOW); GLUCOSE, URINE NEGATIVE (NEGATIVE); KETONES,URINE NEGATIVE (NEGATIVE); LEUKOCYTE ESTERASE ,URINE SMALL (NEGATIVE); NITRITE,URINE NEGATIVE (NEGATIVE); PH,URINE 5 (5 - 7); PROTEIN,URINE DIPSTICK NEGATIVE (NEGATIVE); URINE UROBILINOGEN 0.2 mg/dL (0.2 - 1)
[2023-01-17 15:59] LABS: BACTERIA,URINE FEW /HPF; EPITHELIAL CELLS,URINE MODERATE /LPF; TRANSITIONAL EPI CELLS,URINE FEW; WBC,URINE (MAN) 0-5 /HPF (0-5)
[2023-01-17] MEDS ORDERED: ONDANSETRON HCL INJ 2MG/ML 2ML 2 MG/ML VIAL IV PRN (16:15)
[2023-01-17] MEDS: SODIUM CHLORIDE 0.9% 1000ML 1,000 ML IV SCH (16:19)
[2023-01-17] MEDS: INSULIN REGULAR, HUMAN 100 UNIT/1 ML SQ SCH ×2 (16:30→20:22)
[2023-01-18] VITALS (39 sets, daily range): BP systolic 85–150; BP diastolic 30–117; PULSE 44–63; RESP 4–20; TEMP 96.7–98.2; O2SAT 98–100
[2023-01-18] MEDS: SODIUM CHLORIDE 0.9% 1000ML 1,000 ML IV SCH ×2 (00:24→09:17)
[2023-01-18 03:40] LABS: TROPONIN I 0.009 ng/mL (0-0.300)
[2023-01-18 06:33] LABS: BASOPHILS % 0.3 % (0.0-1.0); EOSINOPHILS % 0.1 % (0.0-6.0); HEMATOCRIT 28.6 % (38.2-49.6); HEMOGLOBIN 9.9 g/dL (14.0-18.0); LYMPHOCYTES # (AUTO) 2.1 (1.0-3.2); LYMPHOCYTES % 27.1 % (18.0-39.1); MEAN CORPUSCULAR HEMOGLOBIN 27.5 pg (28-32); MEAN CORPUSCULAR HGB CONC 34.6 g/dL (31-35); MEAN CORPUSCULAR VOLUME 79.4 fL (81-99); MONOCYTES # (AUTO) 0.4 (0.2-0.8); MONOCYTES % 5.4 % (4.4-11.3); NEUTROPHILS # (AUTO) 5.1 (2.1-6.9); NEUTROPHILS % 66.8 % (38.7-80.0); PLATELET COUNT 210 x10e3/uL (140-360); RED CELL DISTRIBUTION WIDTH 15.6 % (11.7-14.4); WHITE BLOOD COUNT 7.59 x10e3/uL (4.8-10.8)
[2023-01-18 06:55] LABS: ALBUMIN 2.6 g/dL (3.5-5.0); ALBUMIN/GLOBULIN RATIO 1.1 (0.8-2.0); ANION GAP 9.9 mmol/L (8-16); BILIRUBIN,TOTAL 0.8 mg/dL (0.2-1.2); CREATININE, SERUM 1.12 mg/dL (0.72-1.25); POTASSIUM 3.9 mmol/L (3.5-5.1)
[2023-01-18] MEDS: INSULIN REGULAR, HUMAN 100 UNIT/1 ML SQ SCH ×4 (07:30→21:00)
[2023-01-18 07:55] LABS: FERRITIN 349.08 ng/mL (21.81-274.66)
[2023-01-18] MEDS: LACTATED RINGER'S 1,000 ML INJ SCH ×2 (13:52→22:45)
[2023-01-18 15:27] LABS: CREATINE KINASE 2512 IU/L (30-200)
[2023-01-18 15:36] LABS: TROPONIN I < 0.001 ng/mL (0-0.300)
[2023-01-18] MEDS: DEXTROSE 50% SYRINGE 50 ML IV PRN (19:58)
[2023-01-19] VITALS (29 sets, daily range): BP systolic 77–130; BP diastolic 47–90; PULSE 41–67; RESP 0–16; TEMP 97.3–98.5; O2SAT 99–100
[2023-01-19] MEDS ORDERED: NOREPINEPHRINE 8 MG/D5W 250 ML 250 ML IV SCH
[2023-01-19 06:32] LABS: BASOPHILS # (AUTO) 0.1 (0.0-0.1); BASOPHILS % 1.2 % (0.0-1.0); EOSINOPHILS # (AUTO) 0.2 (0.0-0.4); EOSINOPHILS % 3.2 % (0.0-6.0); HEMATOCRIT 28.5 % (38.2-49.6); HEMOGLOBIN 9.8 g/dL (14.0-18.0); LYMPHOCYTES # (AUTO) 2.7 (1.0-3.2); LYMPHOCYTES % 45.7 % (18.0-39.1); MEAN CORPUSCULAR HEMOGLOBIN 27.9 pg (28-32); MEAN CORPUSCULAR HGB CONC 34.4 g/dL (31-35); MEAN CORPUSCULAR VOLUME 81.2 fL (81-99); MONOCYTES # (AUTO) 0.5 (0.2-0.8); MONOCYTES % 8.3 % (4.4-11.3); NEUTROPHILS # (AUTO) 2.4 (2.1-6.9); NEUTROPHILS % 41.3 % (38.7-80.0); PLATELET COUNT 203 x10e3/uL (140-360); RED BLOOD COUNT 3.51 x10e6/uL (4.3-5.7); RED CELL DISTRIBUTION WIDTH 15.9 % (11.7-14.4); WHITE BLOOD COUNT 5.91 x10e3/uL (4.8-10.8)
[2023-01-19 07:03] LABS: CALCIUM 8.1 mg/dL (8.4-10.2); CREATININE, SERUM 1.03 mg/dL (0.72-1.25); MAGNESIUM 1.7 MG/DL (1.3-2.1)
[2023-01-19] MEDS: INSULIN REGULAR, HUMAN 100 UNIT/1 ML SQ SCH ×4 (07:22→20:58)
[2023-01-19 07:23] LABS: TROPONIN I 0.012 ng/mL (0-0.300)
[2023-01-19] MEDS: DEXTROSE 50% SYRINGE 50 ML IV PRN (09:32)
[2023-01-19] MEDS: LACTATED RINGER'S 1,000 ML INJ SCH ×2 (09:34→19:17)
[2023-01-20] VITALS (23 sets, daily range): BP systolic 81–120; BP diastolic 46–82; PULSE 43–57; RESP 0–34; TEMP 97.3–97.9; O2SAT 98–100
[2023-01-20] MEDS: LACTATED RINGER'S 1,000 ML INJ SCH ×2 (06:00→11:54)
[2023-01-20 06:46] LABS: BASOPHILS # (AUTO) 0.1 (0.0-0.1); BASOPHILS % 1.2 % (0.0-1.0); EOSINOPHILS # (AUTO) 0.2 (0.0-0.4); HEMATOCRIT 27.5 % (38.2-49.6); HEMOGLOBIN 9.5 g/dL (14.0-18.0); LYMPHOCYTES # (AUTO) 2.7 (1.0-3.2); LYMPHOCYTES % 36.9 % (18.0-39.1); MEAN CORPUSCULAR HEMOGLOBIN 27.8 pg (28-32); MEAN CORPUSCULAR HGB CONC 34.5 g/dL (31-35); MEAN CORPUSCULAR VOLUME 80.4 fL (81-99); MONOCYTES # (AUTO) 0.6 (0.2-0.8); MONOCYTES % 8.1 % (4.4-11.3); NEUTROPHILS # (AUTO) 3.8 (2.1-6.9); NEUTROPHILS % 51.5 % (38.7-80.0); PLATELET COUNT 199 x10e3/uL (140-360); RED BLOOD COUNT 3.42 x10e6/uL (4.3-5.7); RED CELL DISTRIBUTION WIDTH 15.9 % (11.7-14.4); WHITE BLOOD COUNT 7.32 x10e3/uL (4.8-10.8)
[2023-01-20 07:06] LABS: CALCIUM 7.7 mg/dL (8.4-10.2); MAGNESIUM 1.5 MG/DL (1.3-2.1); PHOSPHORUS 2.9 MG/DL (2.3-4.7)
[2023-01-20] MEDS: INSULIN REGULAR, HUMAN 100 UNIT/1 ML SQ SCH ×4 (07:17→21:00)
[2023-01-20] MEDS: ATORVASTATIN 40 MG TAB PO SCH (21:12)
[2023-01-20] MEDS: FAMOTIDINE 20 MG TAB PO SCH (21:13)
[2023-01-21] VITALS (30 sets, daily range): BP systolic 82–130; BP diastolic 40–85; PULSE 45–63; RESP 5–17; TEMP 96.7–97.8; O2SAT 100
[2023-01-21] MEDS: LACTATED RINGER'S 1,000 ML INJ SCH ×3 (02:00→22:00)
[2023-01-21 06:50] LABS: BASOPHILS # (AUTO) 0.1 (0.0-0.1); BASOPHILS % 1.6 % (0.0-1.0); EOSINOPHILS # (AUTO) 0.1 (0.0-0.4); EOSINOPHILS % 2.3 % (0.0-6.0); HEMOGLOBIN 9.7 g/dL (14.0-18.0); LYMPHOCYTES # (AUTO) 2.9 (1.0-3.2); LYMPHOCYTES % 46.4 % (18.0-39.1); MEAN CORPUSCULAR HEMOGLOBIN 27.7 pg (28-32); MEAN CORPUSCULAR HGB CONC 34.6 g/dL (31-35); MONOCYTES # (AUTO) 0.5 (0.2-0.8); MONOCYTES % 8.6 % (4.4-11.3); NEUTROPHILS # (AUTO) 2.5 (2.1-6.9); NEUTROPHILS % 40.6 % (38.7-80.0); PLATELET COUNT 198 x10e3/uL (140-360); RED CELL DISTRIBUTION WIDTH 16.4 % (11.7-14.4); WHITE BLOOD COUNT 6.18 x10e3/uL (4.8-10.8)
[2023-01-21 07:05] LABS: INR 1.18; PROTHROMBIN TIME 15.7 seconds (11.9-14.5)
[2023-01-21 07:06] LABS: PARTIAL THROMBOPLASTIN TIME 30.9 seconds (23.8-35.5)
[2023-01-21 07:11] LABS: ALBUMIN 2.4 g/dL (3.5-5.0); ANION GAP 8.9 mmol/L (8-16); BILIRUBIN,TOTAL 0.7 mg/dL (0.2-1.2); CALCIUM 7.6 mg/dL (8.4-10.2); CREATININE, SERUM 1.07 mg/dL (0.72-1.25); POTASSIUM 3.9 mmol/L (3.5-5.1); TOTAL PROTEIN 4.8 g/dL (6.5-8.1)
[2023-01-21] MEDS: INSULIN REGULAR, HUMAN 100 UNIT/1 ML SQ SCH ×4 (07:30→20:41)
[2023-01-21] MEDS ORDERED: Vancomycin IV 1 GM in SODIUM CHLORIDE 0.9% 250ML 250 ML IV PRN (09:00)
[2023-01-21] MEDS ORDERED: LIDOCAINE HCL 2% LOCAL 20 ML VIAL ONE (09:23)
[2023-01-21] MEDS ORDERED: GENTAMICIN SULFATE 40 MG/ML 2 ML VIAL ONE (09:23)
[2023-01-21] MEDS ORDERED: SODIUM CHLORIDE 0.9% 500ML 500 ML ONE (09:24)
[2023-01-21] MEDS ORDERED: IOPAMIDOL 610MG/1ML 300 MG/ML VIAL IV ONE (09:24)
[2023-01-21] MEDS ORDERED: Vancomycin IV 1 GM VIAL ONE (09:24)
[2023-01-21] MEDS ORDERED: SODIUM CHLORIDE 0.9% 250ML 250 ML ONE (09:25)
[2023-01-21] MEDS ORDERED: SODIUM CHLORIDE 0.9% 1000ML 2,000 ML ONE (09:25)
[2023-01-21] MEDS ORDERED: PROPOFOL IV EMULSION 10 MG/ML 20 ML VIAL ONE (09:37)
[2023-01-21] MEDS ORDERED: FENTANYL CITRATE/PF 100MCG/2 ML INJ ONE (09:37)
[2023-01-21] MEDS ORDERED: MIDAZOLAM HCL 2 MG/2 ML VIAL ONE (09:37)
[2023-01-21] MEDS ORDERED: DOCUSATE SODIUM 100 MG CAP PO PRN (15:00)
[2023-01-21] MEDS ORDERED: POLYETHYLENE GLYCOL 3350 17 GM PACK PO PRN (15:00)
[2023-01-21] MEDS: FAMOTIDINE 20 MG TAB PO SCH (20:23)
[2023-01-21] MEDS: ATORVASTATIN 40 MG TAB PO SCH (20:23)
[2023-01-22] VITALS: BP 120/62; PULSE 62; RESP 16; TEMP 98.1
[2023-01-22] MEDS: LACTATED RINGER'S 1,000 ML INJ SCH (04:51)
[2023-01-22 08:28] VITALS: BP 106/52; PULSE 60; RESP 20; TEMP 98.5; O2SAT 100
[2023-01-22] MEDS: INSULIN REGULAR, HUMAN 100 UNIT/1 ML SQ SCH ×4 (09:40→20:52)
[2023-01-22] MEDS: DOXYCYCLINE HYCLATE TABLET 100 MG TAB PO SCH ×2 (09:41→17:06)
[2023-01-22 14:52] VITALS: BP 115/45; PULSE 60; RESP 20; TEMP 98.7; O2SAT 100
[2023-01-22] MEDS: TRAMADOL HCL 50 MG TAB PO PRN (17:08)
[2023-01-22 20:00] VITALS: BP 126/61; PULSE 60; RESP 20; TEMP 98.8; O2SAT 99
[2023-01-22] MEDS: FAMOTIDINE 20 MG TAB PO SCH (20:47)
[2023-01-22] MEDS: ATORVASTATIN 40 MG TAB PO SCH (20:47)
[2023-01-22] MEDS ORDERED: ENOXAPARIN INJ 80 MG/0.8 ML SYR SC SCH ×2 (21:00)
[2023-01-23] VITALS (10 sets, daily range): BP systolic 111–135; BP diastolic 48–93; PULSE 60–85; RESP 12–20; TEMP 97.6–99; O2SAT 98–100
[2023-01-23] MEDS: TRAMADOL HCL 50 MG TAB PO PRN ×2 (00:20→14:19)
[2023-01-23] MEDS: INSULIN REGULAR, HUMAN 100 UNIT/1 ML SQ SCH ×4 (07:30→21:14)
[2023-01-23] MEDS: DOXYCYCLINE HYCLATE TABLET 100 MG TAB PO SCH ×2 (08:30→17:50)
[2023-01-23] MEDS: ATORVASTATIN 40 MG TAB PO SCH (21:10)
[2023-01-23] MEDS: FAMOTIDINE 20 MG TAB PO SCH (21:11)
[2023-01-24 04:09] VITALS: BP 134/77; PULSE 60; RESP 18; TEMP 97.8; O2SAT 100
[2023-01-24] MEDS: INSULIN REGULAR, HUMAN 100 UNIT/1 ML SQ SCH (07:30)
[2023-01-24 08:00] VITALS: BP 151/93; PULSE 61; RESP 18; TEMP 98.1; O2SAT 100
[2023-01-24] MEDS ORDERED: APIXABAN 5 MG TABLET PO SCH (08:00)
[2023-01-24] MEDS ORDERED: ELIQUIS5 MG PO ×2 (08:03→09:21)
[2023-01-24] MEDS ORDERED: DOXYCYCLINE HY100 MG PO ×2 (08:03→09:21)
[2023-01-24 09:41] VITALS: BP 151/93; PULSE 61; RESP 18; TEMP 98.1; O2SAT 100
[2023-01-24] MEDS ORDERED: ONDANSETRON HCL 4 MG ORAL DISINTEGRATING TAB PO PRN (10:00)
== END 2023-01-24 09:44 | disposition home or self-care (01) | DRG 853 ==
LOC: ER 14:12 → ERHOLD 16:09 → ICU 17:00 → MED/SURG 01-19 13:54 → ICU 01-19 17:17 → MED/SURG3 01-21 18:52
PROVIDERS: ADMIT Internal Medicine; ATTEND Internal Medicine
PROC: 02HV33Z Insertion of Infusion Device into Superior Vena Cava, Percutaneous Approach (ICD-10-PCS; 2023-01-17)
PROC: B548ZZA Ultrasonography of Superior Vena Cava, Guidance (ICD-10-PCS; 2023-01-17)
PROC: 0JH606Z Insertion of Pacemaker, Dual Chamber into Chest Subcutaneous Tissue and Fascia, Open Approach (ICD-10-PCS; principal; 2023-01-21)
PROC: 02H63JZ Insertion of Pacemaker Lead into Right Atrium, Percutaneous Approach (ICD-10-PCS; 2023-01-21)
PROC: 02HK3JZ Insertion of Pacemaker Lead into Right Ventricle, Percutaneous Approach (ICD-10-PCS; 2023-01-21)
PROC: 02PYX3Z Removal of Infusion Device from Great Vessel, External Approach (ICD-10-PCS; 2023-01-21)
PROC: B518ZZA Fluoroscopy of Superior Vena Cava, Guidance (ICD-10-PCS; 2023-01-21)
DX: A41.9 Sepsis, unspecified organism (principal); G93.41 Metabolic encephalopathy; N17.9 Acute kidney failure, unspecified; I82.B12 Acute embolism and thrombosis of left subclavian vein; M62.82 Rhabdomyolysis; I82.A12 Acute embolism and thrombosis of left axillary vein; N39.0 Urinary tract infection, site not specified; E87.21 Acute metabolic acidosis; I49.5 Sick sinus syndrome; R65.20 Severe sepsis without septic shock; I44.1 Atrioventricular block, second degree; Q90.9 Down syndrome, unspecified; E86.0 Dehydration; I12.9 Hypertensive chronic kidney disease with stage 1 through stage 4 chronic kidney disease, or unspecified chronic kidney disease; N18.30 Chronic kidney disease, stage 3 unspecified; W19.XXXA Unspecified fall, initial encounter; Y92.9 Unspecified place or not applicable; R74.01 Elevation of levels of liver transaminase levels; E88.09 Other disorders of plasma-protein metabolism, not elsewhere classified; D64.9 Anemia, unspecified; M25.559 Pain in unspecified hip; M54.9 Dorsalgia, unspecified; M10.9 Gout, unspecified; E11.22 Type 2 diabetes mellitus with diabetic chronic kidney disease; Z79.899 Other long term (current) drug therapy; Z87.440 Personal history of urinary (tract) infections
CPT/HCPCS: 36415; 36569; 36600; 51700; 70450; 71045; 74176; 74470; 77001; 80048; 80053; 80307; 80320; 80329; 81001; 82550; 82607; 82728; 82948; 83540; 83605; 83735; 84100; 84134; 84443; 84466; 84484; 85025; 85610; 85730; 87040; 87086; 87400; 93005; 93306; 93971; 94799; 96372; 99252; 99285; C1769; C1785; C1898; J1580; J1650; J1720; J2001; J2250; J2543; J7030; J7040; J7050; J7799; U0002